=== PATIENT | female | born 1950 | race Caucasian/White ===

== ENCOUNTER 2018-03-12 11:46 | Inpatient (IN) | payer MEDICARE, BC ==
[2018-03-12] MEDS ORDERED: cefTRIAXone 2 GM in Sodium Chloride 0.9% 50 ML IV SCH (13:30)
[2018-03-12] MEDS ORDERED: Lactated Ringers 1,000 ML IV SCH (13:30)
[2018-03-12] MEDS ORDERED: Albuterol/Ipratropium 3.0-0.5 MG/3 ML Neb Soln NEB ONE (13:39)
--- NOTE | 2018-03-12 13:39 | EDM.PDOC ---
ED HPI GENERAL MEDICAL PROBLEM - General Chief Complaint: Possible Sepsis Stated Complaint: PNEUMONIA Time Seen by Provider: 03/12/18 13:21 Source of Information: Reports: Patient, Family, RN Notes Reviewed History Limitations: Reports: No Limitations - History of Present Illness INITIAL COMMENTS - FREE TEXT/NARRATIVE: 67-year-old female presents to the emergency department today complaint of shortness of breath and cough, she has a known history of multiple myeloma and hypothyroidism is currently on chemotherapy recently had pneumonia one month ago treated with amoxicillin. For this particular event she states about 3 days ago started developing a cough feeling more short of breath as well as fever no chest pain did have nausea and vomiting one time Denies Pain Score (Numeric/FACES): 0 - Related Data Allergies Allergy/AdvReac Type Severity Reaction Status Date / Time metronidazole [From Flagyl] Allergy Cannot Verified 03/12/18 12:32 Remember Metronidazole HCl Allergy Cannot Verified 03/12/18 12:32 [From Flagyl] Remember Home Meds: Home Meds Acyclovir [Zovirax] 400 mg PO BID 03/12/18 [History] Albuterol [Ventolin HFA] 2 puff INH Q4H PRN 03/12/18 [History] Aspirin [Ecotrin] 325 mg PO Q6H PRN 03/12/18 [History] Biotin Powder PO DAILY 03/12/18 [History] Calcium Carbonate [Calcium] 500 mg PO DAILY 03/12/18 [History] Cholecalciferol (Vitamin D3) [Vitamin D3] 1,000 units PO DAILY 03/12/18 [History ] Gabapentin [Neurontin] 300 mg PO DAILY 03/12/18 [History] Lenalidomide [Revlimid] 15 mg PO DAILY 03/12/18 [History] Levothyroxine [Synthroid] 100 mcg PO DAILY 03/12/18 [History] Prochlorperazine [Compazine] 10 mg PO Q6H PRN 03/12/18 [History] Past Medical History HEENT History: Reports: Cataract Respiratory History: Reports: Other (See Below) Other Respiratory History: pneumonia 1 month ago Gastrointestinal History: Reports: Diverticulosis 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: Musculoskeletal History: Reports: Other (See Below) 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 Neurological History: 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, Peripheral, Other (See Below) 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 Endocrine/Metabolic History: Reports: Hypothyroidism Oncologic (Cancer) History: Reports: Other (See Below) Other Oncologic History: multiple myeloma - Past Surgical History HEENT Surgical History: Reports: Tonsillectomy GI Surgical History: Reports: Cholecystectomy, Colonoscopy, Other (See Below) Other GI Surgeries/Procedures: partial colon resection Female Surgical History: Reports: Section, Tubal Ligation Endocrine Surgical History: Reports: Thyroidectomy Social & Family History - Tobacco Use Smoking Status *Q: Never Smoker ED ROS GENERAL - Review of Systems Review Of Systems: See Below Constitutional: Reports: Fever, Chills, Weakness HEENT: Reports: No Symptoms Respiratory: Reports: Shortness of Breath, Cough, Sputum. Denies: Wheezing Cardiovascular: Reports: Dyspnea on Exertion. Denies: Chest Pain GI/Abdominal: Reports: Nausea, Vomiting : Reports: No Symptoms Musculoskeletal: Reports: No Symptoms Skin: Reports: No Symptoms Neurological: Reports: No Symptoms ED EXAM, GENERAL - Physical Exam Exam: See Below Free Text/Narrative:: General: Female, ill-appearing, alert and oriented x3 HEENT: head is atraumatic normocephalic, eyes pupils equal round reactive to light, sclera clear no conjunctivitis appreciated. Ears tympanic membranes clear and bowden landmarks and light reflex are present bilaterally canals are clear. Nose no septal deviation, nares are clear, no blood present. Mouth mucosa is moist and pink no erythema or exudate noted in soft palate, tongue is midline uvula is midline , dentition is intact. Neck: Supple no thyromegaly no tracheal deviation. Nodes: Cervical nodes subclavicular nodes nontender no palpable lymphadenopathy noted. Lungs: Scattered rhonchi throughout all lung [place]. CV: Regular rate and rhythm S1 and S2 appreciated no murmurs rubs or gallops noted. Abdomen: Soft, nontender, no palpable masses or organomegaly appreciated, no distention no guarding bowel sounds are present, . Neuro: Cranial nerves II through XII grossly intact Skin: Warm and dry, intact Extremities: No lower extremity edema appreciated, pedal pulse is +2. Course - Vital Signs Last Recorded V/S: Last Vital Signs Temp 96.4 F 03/13/18 03:22 Pulse 70 03/13/18 03:22 Resp 18 03/13/18 03:22 BP 110/48 L 03/13/18 03:22 Pulse Ox 93 L 03/13/18 03:22 - Orders/Labs/Meds Orders: Active Orders 24 hr Category Date Time Status RT Aerosol Therapy [RC] ASDIRECTED Care 03/12/18 13:40 Inactive Chest 2V [CR] Urgent Exams 03/12/18 13:39 Taken CULTURE BLOOD [BC] Urgent Lab 03/12/18 12:40 Received CULTURE BLOOD [BC] Urgent Lab 03/12/18 13:54 Received CULTURE URINE [RM] Urgent Lab 03/12/18 14:00 Received Blood Culture x2 Reflex Set [OM.PC] Urgent Oth 03/12/18 13:30 Ordered Medication Orders Acetaminophen (Tylenol) 650 mg PO Q4H PRN PRN Reason: Pain (Mild 1-3)/fever Last Admin: 03/12/18 22:36 Dose: 650 mg Acyclovir (Zovirax) 400 mg PO BID [facility] Last Admin: 03/12/18 21:06 Dose: 400 mg Albuterol (Proventil Neb Soln) 2.5 mg NEB Q4H PRN PRN Reason: Shortness Of Breath/wheezing Benzonatate (Tessalon Perles) 100 mg PO TID PRN PRN Reason: Cough Gabapentin (Neurontin) 300 mg PO DAILY [facility] Guaifenesin/Codeine Phosphate (Robitussin Ac) 10 ml PO Q4H PRN PRN Reason: Cough Last Admin: 03/12/18 17:16 Dose: 10 ml Cefepime HCl 1 gm/ Sodium (Chloride) 50 mls @ 100 mls/hr IV Q8H [facility] Last Admin: 03/13/18 03:18 Dose: 100 mls/hr Admin: 03/12/18 19:59 Dose: 100 mls/hr Potassium Chloride/Sodium Chloride (Normal Saline With 20 Meq Kcl) 1,000 mls @ 125 mls/hr IV ASDIRECTED [facility] Last Admin: 03/13/18 02:52 Dose: 125 mls/hr Infusion: 03/13/18 02:52 Dose: 125 mls/hr Admin: 03/12/18 21:11 Dose: 125 mls/hr Ibuprofen (Motrin) 600 mg PO Q6H PRN PRN Reason: Pain/Fever Levofloxacin (Levaquin) 250 mg PO Q48H [facility] Levofloxacin (Levaquin) 500 mg PO Q48H [facility] Levothyroxine Sodium (Synthroid) 100 mcg PO DAILY@0730 [facility] Ondansetron HCl (Zofran Odt) 4 mg PO Q6H PRN PRN Reason: Nausea able to take PO Ondansetron HCl (Zofran) 4 mg IV Q6H PRN PRN Reason: Nausea/Vomiting Labs: Laboratory Tests 03/12/18 03/12/18 03/12/18 Range/Units 12:40 12:40 12:40 WBC 2.0 L (4.5-11.0) K/uL RBC 4.05 (3.30-5.50) M/uL Hgb 12.5 (12.0-15.0) g/dL Hct 36.4 (36.0-48.0) % MCV 90 (80-98) fL MCH 31 (27-31) pg MCHC 34 (32-36) % Plt Count 86 L (150-400) K/uL Neut % (Auto) 63 (36-66) % Lymph % (Auto) 14 L (24-44) % [place] % (Auto) 16 H (2-6) % Eos % (Auto) 6 H (2-4) % Baso % (Auto) 1 (0-1) % Sodium 140 (140-148) mmol/L Potassium 2.6 L* (3.6-5.2) mmol/L Chloride 101 (100-108) mmol/L Carbon Dioxide 24 (21-32) mmol/L Anion Gap 17.6 H (5.0-14.0) mmol/L BUN 10 (7-18) mg/dL Creatinine 1.2 H (0.6-1.0) mg/dL Est Cr Clr Drug Dosing 39.82 mL/min Estimated GFR (MDRD) 45 L (>60) Glucose 101 (74-106) mg/dL Lactic Acid 1.8 (0.4-2.0) mmol/L Calcium 7.0 L (8.5-10.1) mg/dL Magnesium (1.8-2.4) mg/dL Total Bilirubin 0.9 (0.2-1.0) mg/dL AST 27 (15-37) U/L ALT 43 (12-78) U/L Alkaline Phosphatase 73 (46-116) U/L C-Reactive Protein 8.46 H (0.0-0.3) mg/dL Total Protein 6.2 L (6.4-8.2) g/dL Albumin 2.9 L (3.4-5.0) g/dL Globulin 3.3 (2.3-3.5) g/dL Albumin/Globulin Ratio 0.9 L (1.2-2.2) Urine Color Urine Appearance Urine pH (4.5-8.0) Ur Specific [place] (1.008-1.030) Urine Protein (NEGATIVE) mg/dL Urine Glucose (UA) (NEGATIVE) mg/dL Urine Ketones (NEGATIVE) mg/dL Urine Occult Blood (NEGATIVE) Urine Nitrite (NEGATIVE) Urine Bilirubin (NEGATIVE) Urine Urobilinogen (NORMAL) mg/dL Ur Leukocyte Esterase (NEGATIVE) Urine RBC (0-5) Urine WBC (0-5) Ur Epithelial Cells Amorphous Sediment Urine Bacteria Urine Mucus Urine Other 03/12/18 03/12/18 Range/Units 12:40 13:39 WBC (4.5-11.0) K/uL RBC (3.30-5.50) M/uL Hgb (12.0-15.0) g/dL Hct (36.0-48.0) % MCV (80-98) fL MCH (27-31) pg MCHC (32-36) % Plt Count (150-400) K/uL Neut % (Auto) (36-66) % Lymph % (Auto) (24-44) % [place] % (Auto) (2-6) % Eos % (Auto) (2-4) % Baso % (Auto) (0-1) % Sodium (140-148) mmol/L Potassium (3.6-5.2) mmol/L Chloride (100-108) mmol/L Carbon Dioxide (21-32) mmol/L Anion Gap (5.0-14.0) mmol/L BUN (7-18) mg/dL Creatinine (0.6-1.0) mg/dL Est Cr Clr Drug Dosing mL/min Estimated GFR (MDRD) (>60) Glucose (74-106) mg/dL Lactic Acid (0.4-2.0) mmol/L Calcium (8.5-10.1) mg/dL Magnesium 1.7 L (1.8-2.4) mg/dL Total Bilirubin (0.2-1.0) mg/dL AST (15-37) U/L ALT (12-78) U/L Alkaline Phosphatase (46-116) U/L C-Reactive Protein (0.0-0.3) mg/dL Total Protein (6.4-8.2) g/dL Albumin (3.4-5.0) g/dL Globulin (2.3-3.5) g/dL Albumin/Globulin Ratio (1.2-2.2) Urine Color Yellow Urine Appearance Turbid Urine pH 5.0 (4.5-8.0) Ur Specific [place] 1.020 (1.008-1.030) Urine Protein 30 H (NEGATIVE) mg/dL Urine Glucose (UA) Normal (NEGATIVE) mg/dL Urine Ketones 50 H (NEGATIVE) mg/dL Urine Occult Blood Moderate (NEGATIVE) Urine Nitrite Negative (NEGATIVE) Urine Bilirubin Small (NEGATIVE) Urine Urobilinogen 4 (NORMAL) mg/dL Ur Leukocyte Esterase Large (NEGATIVE) Urine RBC 5-10 H (0-5) Urine WBC Packed H (0-5) Ur Epithelial Cells Few Amorphous Sediment Few Urine Bacteria Many Urine Mucus Few Urine Other Meds: Medications Generic Name Dose Route Start Last Admin Trade Name Freq PRN Reason Stop Dose Admin Acetaminophen 650 mg 03/12/18 16:17 03/12/18 22:36 Tylenol PO 650 mg Q4H PRN Administration Pain (Mild 1-3)/fever Acyclovir 400 mg 03/12/18 21:00 03/12/18 21:06 Zovirax PO 400 mg BID [facility]TER Administration Albuterol 2.5 mg 03/12/18 16:17 Proventil Neb Soln NEB Q4H PRN Shortness Of Breath/wheezing Benzonatate 100 mg 03/12/18 16:17 Tessalon Perles PO TID PRN Cough Gabapentin 300 mg 03/13/18 09:00 Neurontin PO DAILY [facility] Guaifenesin/Codeine Phosphate 10 ml 03/12/18 16:17 03/12/18 17:16 Robitussin Ac PO 10 ml Q4H PRN Administration Cough Cefepime HCl 1 gm/ Sodium 50 mls @ 100 mls/hr 03/12/18 18:00 03/13/18 03:18 Chloride IV 100 mls/hr Q8H [facility] Administration Potassium Chloride/Sodium Chloride 1,000 mls @ 125 mls/hr 05/22/18 16:17 02:52 Normal Saline With 20 Meq Kcl IV 125 mls/hr ASDIRECTED [facility] Administration Ibuprofen 600 mg 03/12/18 16:17 Motrin PO Q6H PRN Pain/Fever Levofloxacin 250 mg 03/14/18 16:00 Levaquin PO Q48H [facility] Levofloxacin 500 mg 03/14/18 16:00 Levaquin PO Q48H [facility] Levothyroxine Sodium 100 mcg 03/13/18 07:30 Synthroid PO DAILY@0730 [facility] Ondansetron HCl 4 mg 03/12/18 16:17 Zofran Odt PO Q6H PRN Nausea able to take PO Ondansetron HCl 4 mg 03/12/18 16:17 Zofran IV Q6H PRN Nausea/Vomiting Discontinued Medications Generic Name Dose Route Start Last Admin Trade Name Freq PRN Reason Stop Dose Admin Albuterol/Ipratropium 3 ml 03/12/18 13:39 03/12/18 14:00 Duoneb 3.0-0.5 Mg/3 Ml NEB 03/12/18 13:40 3 ml ONETIME ONE Administration Lactated Ringer's 1,000 mls @ 500 mls/hr 03/12/18 13:30 03/12/18 13:48 Ringers, Lactated IV 500 mls/hr ASDIRECTED [facility] Administration Ceftriaxone Sodium 2 gm/ 50 mls @ 100 mls/hr 03/12/18 14:00 03/12/18 13:47 Sodium Chloride IV 03/12/18 14:29 100 mls/hr ONETIME ONE Administration Potassium Chloride 20 meq/ 112 mls @ 56 mls/hr 03/12/18 14:30 03/12/18 14:33 Lidocaine HCl 2 ml/ Sodium IV 03/12/18 16:29 56 mls/hr Chloride ONETIME ONE Administration Levofloxacin/Dextrose 750 mg/ 150 mls @ 100 mls/hr 03/12/18 17:00 03/12/18 17 :43 Premix IV 03/12/18 18:29 100 mls/hr ONETIME ONE Administration Magnesium Sulfate 2 gm/ Premix 50 mls @ 25 mls/hr 03/12/18 18:00 03/12/18 21: 06 IV 03/12/18 19:59 25 mls/hr ONETIME ONE Administration Potassium Chloride 40 meq 03/12/18 14:00 03/12/18 14:07 Klor-Con M20 PO 03/12/18 14:01 40 meq ONETIME ONE Administration Departure - Departure Time of Disposition: 07:02 Disposition: Admitted As Inpatient 67 Condition: Fair Clinical Impression: Acute cystitis Qualifiers: Hematuria presence: without hematuria Qualified Code(s): N30.00 - Acute cystitis without hematuria - Discharge Information - My Orders Last 24 Hours: My Active Orders 03/12/18 12:40 CULTURE BLOOD [BC] Urgent 03/12/18 13:30 Blood Culture x2 Reflex Set [OM.PC] Urgent 03/12/18 13:39 Chest 2V [CR] Urgent 03/12/18 13:40 RT Aerosol Therapy [RC] ASDIRECTED 03/12/18 13:54 CULTURE BLOOD [BC] Urgent 03/12/18 14:00 CULTURE URINE [RM] Urgent - Assessment/Plan Last 24 Hours: My Active Orders 03/12/18 12:40 CULTURE BLOOD [BC] Urgent 03/12/18 13:30 Blood Culture x2 Reflex Set [OM.PC] Urgent 03/12/18 13:39 Chest 2V [CR] Urgent 03/12/18 13:40 RT Aerosol Therapy [RC] ASDIRECTED 03/12/18 13:54 CULTURE BLOOD [BC] Urgent 03/12/18 14:00 CULTURE URINE [RM] Urgent Plan: Assessment Acuity = acute Site and laterality = urinary tract infection comp care the patient with known history of multiple myeloma and hypothyroidism while immunocompromised on chemotherapy Etiology = suspicious for bacterial cause Manifestations = fever Location of injury = Home Lab values = WBC low at 2.0 consistent leukopenia potassium low at 2.6 consistent hypokalemia creatinine elevated 1.2 consistent with acute renal failure stage GIII a CRP elevated 8.46 and lactic acid normal at 1.8 urinalysis reveals 30 protein consistent proteinuria, 58 ketones consistent ketonuria 5-10 rbc's consistent hematuria and packed WBCs consistent pyuria chest x-ray I did review films myself I cannot appreciate any acute process, the official read from radiology is pending Plan Called discussed case with hospitalist loss control engineer he agreed, and evaluate the patient emergency department for admission This note was dictated using [employer] voice recognition software please call with any questions on syntax or grammar.
[2018-03-12] MEDS ORDERED: Potassium Chloride 20 MEQ in Premix Bag 1 BAG IV ONE (14:00)
[2018-03-12] MEDS ORDERED: cefTRIAXone 2 GM in Sodium Chloride 0.9% 50 ML IV ONE (14:00)
[2018-03-12] MEDS ORDERED: Potassium Chloride 20 MEQ Tab.ER PO ONE (14:00)
[2018-03-12] MEDS ORDERED: Potassium Chloride 20 MEQ, Lidocaine 1% 2 ML in Sodium Chloride 0.9% 100 ML IV ONE (14:30)
[2018-03-12] MEDS ORDERED: Levofloxacin/Dextrose 5%-Water 750 MG in Premix Bag 1 BAG IV ONE ×2 (15:41→17:00)
--- NOTE | 2018-03-12 15:55 | PCM.HP ---
H&P History of Present Illness - General Date of Service: 03/12/18 Admit Problem/Dx: Admission Diagnosis/Problem Admission Diagnosis/Problem Right lower lobe pneumonia Source of Information: Patient, Family, Provider History Limitations: Reports: No Limitations - History of Present Illness Initial Comments - Free Text/Narative: Keli presents to the emergency room today with 5 days of cough, shortness of breath and anorexia. She has had subjective fevers and chills at home over that time. Symptoms have progressed to the point that she is now short of breath doing very little. Initially her cough had clear sputum but it is now changed to white color. She's had very little to eat or drink over the last 5 days. She has mild diarrhea which she attributes to her chemotherapy. She has had occasional nausea and one episode of vomiting. She does not report abdominal pain. She hasn't noticed a change in urination. Yesterday she completed 21 days of oral Revlimid. Last IV chemotherapy was one week ago today. No sick contacts or recent travel. Workup in the emergency room revealed significant hypokalemia with potassium 2.6 as well as a low white blood cell count with less than 1000 neutrophils. Chest x-ray suggested pneumonia and urinalysis suggested acute cystitis. She will be admitted for IV antibiotics as well as potassium replacement. Denies Pain Score (Numeric/FACES): 0 - Related Data Allergies/Adverse Reactions: Allergies Allergy/AdvReac Type Severity Reaction Status Date / Time metronidazole [From Flagyl] Allergy Cannot Verified 03/12/18 12:32 Remember Metronidazole HCl Allergy Cannot Verified 03/12/18 12:32 [From Flagyl] Remember Home Medications: Home Meds Acyclovir [Zovirax] 400 mg PO BID 03/12/18 [History] Albuterol [Ventolin HFA] 2 puff INH Q4H PRN 03/12/18 [History] Aspirin [Ecotrin] 325 mg PO Q6H PRN 03/12/18 [History] Biotin Powder PO DAILY 03/12/18 [History] Calcium Carbonate [Calcium] 500 mg PO DAILY 03/12/18 [History] Cholecalciferol (Vitamin D3) [Vitamin D3] 1,000 units PO DAILY 03/12/18 [History ] Gabapentin [Neurontin] 300 mg PO DAILY 03/12/18 [History] Lenalidomide [Revlimid] 15 mg PO DAILY 03/12/18 [History] Levothyroxine [Synthroid] 100 mcg PO DAILY 03/12/18 [History] Prochlorperazine [Compazine] 10 mg PO Q6H PRN 03/12/18 [History] Past Medical History HEENT History: Reports: Cataract Respiratory History: Reports: Other (See Below) Other Respiratory History: pneumonia 1 month ago Gastrointestinal History: Reports: Diverticulosis [employer]IST History: Reports: Musculoskeletal History: Reports: Other (See Below) 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 Neurological History: 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, Peripheral, Other (See Below) 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 Endocrine/Metabolic History: Reports: Hypothyroidism Oncologic (Cancer) History: Reports: Other (See Below) Other Oncologic History: multiple myeloma - Past Surgical History HEENT Surgical History: Reports: Tonsillectomy GI Surgical History: Reports: Cholecystectomy, Colonoscopy, Other (See Below) Other GI Surgeries/Procedures: partial colon resection Female Surgical History: Reports: Section, Tubal Ligation Endocrine Surgical History: Reports: Thyroidectomy Social & Family History - Family History Cardiac: Denies: CAD - Tobacco Use Smoking Status *Q: Never Smoker Years of Tobacco use: 9 Used Tobacco, but Quit: Yes Month/Year Tobacco Last Used: 0 - Caffeine Use Caffeine Use: Reports: Soda - Alcohol Use Alcohol Use History: No - Recreational Drug Use Recreational Drug Use: No H&P Review of Systems - Review of Systems: Review Of Systems: See Below Free Text/Narrative: A complete 12 point review of systems was obtained. Pertinent positives and negatives are noted in the history of present illness. All other systems were reviewed and were negative except as noted. Exam - Exam Exam: See Below - Vital Signs Vital Signs: Last Vital Signs Temp 37.4 C 03/12/18 15:13 Pulse 92 03/12/18 15:13 Resp 16 03/12/18 15:13 BP 126/46 L 03/12/18 15:13 Pulse Ox 94 L 03/12/18 15:13 Weight: 81.647 kg - Exam Quality Assessment: No: Supplemental Oxygen General: Alert, Oriented, Cooperative, Mild Distress HEENT: Conjunctiva Clear. No: Mucosa Moist & [place] (dry), Scleral Icterus Neck: Supple, Trachea Midline. No: Lymphadenopathy Lungs: Normal Respiratory Effort, Crackles (right mid lung posteriorly ). No: Wheezing Cardiovascular: Regular Rate, Regular Rhythm. No: Systolic Murmur GI/Abdominal Exam: Normal Bowel Sounds, Soft, Non-Tender, No Distention Back Exam: Normal Inspection, Full Range of Motion Extremities: No Pedal Edema. No: Increased Warmth Peripheral Pulses: 2+: Dorsalis Pedis (L), Dorsalis Pedis (R) Skin: Warm, Dry Neuro Extensive - Mental Status: Alert, Oriented x3, Nl Response to Commands Neuro Extensive - Motor, Sensory, Reflexes: CN II-XII Intact. No: Dysarthria, Abnormal Motor, Other Psychiatric: Alert, Normal Affect - Patient Data Lab Results Last 24 hrs: Laboratory Results - last 24 hr 03/12/18 03/12/18 03/12/18 Range/Units 12:40 12:40 12:40 WBC 2.0 L (4.5-11.0) K/uL RBC 4.05 (3.30-5.50) M/uL Hgb 12.5 (12.0-15.0) g/dL Hct 36.4 (36.0-48.0) % MCV 90 (80-98) fL MCH 31 (27-31) pg MCHC 34 (32-36) % Plt Count 86 L (150-400) K/uL Neut % (Auto) 63 (36-66) % Lymph % (Auto) 14 L (24-44) % [place] % (Auto) 16 H (2-6) % Eos % (Auto) 6 H (2-4) % Baso % (Auto) 1 (0-1) % Sodium 140 (140-148) mmol/L Potassium 2.6 L* (3.6-5.2) mmol/L Chloride 101 (100-108) mmol/L Carbon Dioxide 24 (21-32) mmol/L Anion Gap 17.6 H (5.0-14.0) mmol/L BUN 10 (7-18) mg/dL Creatinine 1.2 H (0.6-1.0) mg/dL Est Cr Clr Drug Dosing 39.82 mL/min Estimated GFR (MDRD) 45 L (>60) Glucose 101 (74-106) mg/dL Lactic Acid 1.8 (0.4-2.0) mmol/L Calcium 7.0 L (8.5-10.1) mg/dL Total Bilirubin 0.9 (0.2-1.0) mg/dL AST 27 (15-37) U/L ALT 43 (12-78) U/L Alkaline Phosphatase 73 (46-116) U/L C-Reactive Protein 8.46 H (0.0-0.3) mg/dL Total Protein 6.2 L (6.4-8.2) g/dL Albumin 2.9 L (3.4-5.0) g/dL Globulin 3.3 (2.3-3.5) g/dL Albumin/Globulin Ratio 0.9 L (1.2-2.2) Urine Color Urine Appearance Urine pH (4.5-8.0) Ur Specific [place] (1.008-1.030) Urine Protein (NEGATIVE) mg/dL Urine Glucose (UA) (NEGATIVE) mg/dL Urine Ketones (NEGATIVE) mg/dL Urine Occult Blood (NEGATIVE) Urine Nitrite (NEGATIVE) Urine Bilirubin (NEGATIVE) Urine Urobilinogen (NORMAL) mg/dL Ur Leukocyte Esterase (NEGATIVE) Urine RBC (0-5) Urine WBC (0-5) Ur Epithelial Cells Amorphous Sediment Urine Bacteria Urine Mucus Urine Other 03/12/18 Range/Units 13:39 WBC (4.5-11.0) K/uL RBC (3.30-5.50) M/uL Hgb (12.0-15.0) g/dL Hct (36.0-48.0) % MCV (80-98) fL MCH (27-31) pg MCHC (32-36) % Plt Count (150-400) K/uL Neut % (Auto) (36-66) % Lymph % (Auto) (24-44) % [place] % (Auto) (2-6) % Eos % (Auto) (2-4) % Baso % (Auto) (0-1) % Sodium (140-148) mmol/L Potassium (3.6-5.2) mmol/L Chloride (100-108) mmol/L Carbon Dioxide (21-32) mmol/L Anion Gap (5.0-14.0) mmol/L BUN (7-18) mg/dL Creatinine (0.6-1.0) mg/dL Est Cr Clr Drug Dosing mL/min Estimated GFR (MDRD) (>60) Glucose (74-106) mg/dL Lactic Acid (0.4-2.0) mmol/L Calcium (8.5-10.1) mg/dL Total Bilirubin (0.2-1.0) mg/dL AST (15-37) U/L ALT (12-78) U/L Alkaline Phosphatase (46-116) U/L C-Reactive Protein (0.0-0.3) mg/dL Total Protein (6.4-8.2) g/dL Albumin (3.4-5.0) g/dL Globulin (2.3-3.5) g/dL Albumin/Globulin Ratio (1.2-2.2) Urine Color Yellow Urine Appearance Turbid Urine pH 5.0 (4.5-8.0) Ur Specific [place] 1.020 (1.008-1.030) Urine Protein 30 H (NEGATIVE) mg/dL Urine Glucose (UA) Normal (NEGATIVE) mg/dL Urine Ketones 50 H (NEGATIVE) mg/dL Urine Occult Blood Moderate (NEGATIVE) Urine Nitrite Negative (NEGATIVE) Urine Bilirubin Small (NEGATIVE) Urine Urobilinogen 4 (NORMAL) mg/dL Ur Leukocyte Esterase Large (NEGATIVE) Urine RBC 5-10 H (0-5) Urine WBC Packed H (0-5) Ur Epithelial Cells Few Amorphous Sediment Few Urine Bacteria Many Urine Mucus Few Urine Other Result Diagrams: 03/12/18 12:40 03/12/18 12:40 Imaging Impressions Last 24 hrs: Chest x-ray - images personally reviewed - there is a right lower lobe infiltrate noted on both frontal and lateral views. No evidence for mass or effusion. Heart size is normal. *Q Meaningful Use (ADM) - VTE Risk Assess *Q Each Risk Factor Represents 1 Point: Obesity ( BMI > 25 kg/m2) Total Score 1 Point Risk Factors: 1 Each Risk Factor Represents 2 Points: Age 60 - 74 Years, Malignancy (present or previous) Total Score 2 Point Risk Factors: 4 Each Risk Factor Represents 3 Points: None Total Score 3 Point Risk Factors: 0 Each Risk Factor Represents 5 Points: None Total Score 5 Point Risk Factors: 0 Venous Thromboembolism Risk Factor Score *Q: 5 - Problem List (1) Right lower lobe pneumonia SNOMED Code(s): 817341410 ICD Code: J18.1 - LOBAR PNEUMONIA, UNSPECIFIED ORGANISM Status: Acute Current Visit: Yes Qualifiers: Pneumonia type: due to unspecified organism Qualified Code(s): J18.1 - Lobar pneumonia, unspecified organism (2) Acute cystitis SNOMED Code(s): 40188262 ICD Code: N30.00 - ACUTE CYSTITIS WITHOUT HEMATURIA Status: Acute Current Visit: Yes Qualifiers: Hematuria presence: without hematuria Qualified Code(s): N30.00 - Acute cystitis without hematuria (3) Hypokalemia SNOMED Code(s): 89553007 ICD Code: E87.6 - HYPOKALEMIA Status: Acute Current Visit: Yes (4) Multiple myeloma SNOMED Code(s): 205354113 ICD Code: C90.00 - MULTIPLE MYELOMA NOT HAVING ACHIEVED REMISSION Status: Chronic Current Visit: Yes Qualifiers: Multiple myeloma remission status: not in remission Qualified Code(s): C90.00 - Multiple myeloma not having achieved remission Problem List Initiated/Reviewed/Updated: Yes Orders Last 24hrs: Active Orders 24 hr Category Date Time Status Patient Status Manage Transfer [TRANSFER] Routine ADT 03/12/18 15:42 Ordered RT Aerosol Therapy [RC] ASDIRECTED Care 03/12/18 13:40 Active Vital Signs [RC] Q1H Care 03/12/18 13:30 Active Chest 2V [CR] Urgent Exams 03/12/18 13:39 Taken CULTURE BLOOD [BC] Urgent Lab 03/12/18 12:40 Received CULTURE BLOOD [BC] Urgent Lab 03/12/18 13:54 Received CULTURE URINE [RM] Urgent Lab 03/12/18 14:00 Received UA W/MICROSCOPIC [URIN] Urgent Lab 03/12/18 13:39 Ordered Lactated Ringers [Ringers, Lactated] 1,000 ml Med 03/12/18 13:30 Active IV ASDIRECTED Levofloxacin/Dextrose 5%-Water [Levaquin in D5W 750 MG/ Med 03/12/18 15:41 Active 150 ML] 750 mg Premix Bag 1 bag IV ONETIME Potassium Chloride 20 meq Med 03/12/18 14:30 Active Lidocaine 1% [Xylocaine 1%] 2 ml Sodium Chloride 0.9% [Normal Saline] 100 ml IV ONETIME Blood Culture x2 Reflex Set [OM.PC] Urgent Oth 03/12/18 13:30 Ordered Resuscitation Status Routine Resus Stat 03/12/18 15:44 Ordered Medication Orders Lactated Ringer's (Ringers, Lactated) 1,000 mls @ 500 mls/hr IV ASDIRECTED CARTER Last Admin: 03/12/18 13:48 Dose: 500 mls/hr Potassium Chloride 20 meq/Lidocaine HCl 2 ml/ Sodium Chloride 112 mls @ 56 mls/ hr IV ONETIME ONE Stop: 03/12/18 16:29 Last Admin: 03/12/18 14:33 Dose: 56 mls/hr Levofloxacin/Dextrose 750 mg/ (Premix) 150 mls @ 100 mls/hr IV ONETIME ONE Stop: 03/12/18 17:10 Assessment/Plan Comment:: ASSESSMENT AND PLAN - Right lower lobe pneumonia - current symptoms include cough and progressive shortness of breath. She is not currently hypoxic. Examination and chest x-ray consistent with right lower lobe pneumonia. -Levofloxacin and cefepime -Supplement oxygen if needed -Sputum culture if able -Cough suppressants as needed Acute cystitis without hematuria - no symptoms but urinalysis strongly suggestive of infection. -IV fluids -Antibiotics as above -Follow-up urine culture Hypokalemia - Potassium level of 2.6 at the time of presentation. She has received 60 mEq of potassium in the emergency room. -IV fluids with potassium -Repeat level this evening and replace as indicated Multiple myeloma - Currently receiving dual chemotherapy with Revlimid for 21 out of 28 days which was just completed as well as biweekly IV chemotherapy. -Outpatient follow-up Maintenance issues - - DVT prophylaxis - mechanical with early ambulation - GI prophylaxis - not indicated - Nutrition - regular diet as tolerated - Sim catheter - not indicated CODE STATUS - full code Admission justification - This patient will be admitted for inpatient services and is medically appropriate meeting medical necessity for inpatient admission as outlined in my documentation. I reasonably expect the patient will require inpatient services that span a period time over 2 midnights. I reasonably expect this patient to be discharged or transferred within 96 hours after admission to the [facility]. Disposition - anticipate discharge to home after the hospital stay Primary care physician - Dr. César Hutchison M.D.
[2018-03-12] MEDS ORDERED: Ibuprofen 600 MG Tab PO PRN (16:17)
[2018-03-12] MEDS ORDERED: Ondansetron 4 MG Tab.DIS PO PRN (16:17)
[2018-03-12] MEDS ORDERED: Ondansetron 4 MG/2 ML SDV IV PRN (16:17)
[2018-03-12] MEDS ORDERED: Benzonatate 100 MG Cap PO PRN (16:17)
[2018-03-12] MEDS ORDERED: Albuterol 0.083% 2.5 MG/3 ML Neb Soln NEB PRN (16:17)
[2018-03-12] MEDS ORDERED: Acetaminophen 325 MG Tab PO PRN (16:17)
[2018-03-12] MEDS: Codeine/guaiFENesin 100mg-10 MG/5 ML Syrup 10 ML Cup PO PRN (17:16)
[2018-03-12] MEDS ORDERED: Magnesium Sulfate/Water 2 GM in Premix Bag 1 BAG IV ONE (18:00)
[2018-03-12] MEDS: Cefepime 1 GM in Sodium Chloride 0.9% 50 ML IV SCH (19:59)
[2018-03-12] MEDS: Acyclovir 200 MG Cap PO SCH (21:06)
[2018-03-12] MEDS: NS + KCl 20mEq/L 1,000 ML IV SCH (21:11)
[2018-03-13] MEDS: NS + KCl 20mEq/L 1,000 ML IV SCH (02:52)
[2018-03-13] MEDS: Cefepime 1 GM in Sodium Chloride 0.9% 50 ML IV SCH ×3 (03:18→18:03)
[2018-03-13] MEDS: Levothyroxine 100 MCG Tab PO SCH (07:55)
[2018-03-13] MEDS: Acyclovir 200 MG Cap PO SCH ×2 (08:29→20:48)
[2018-03-13] MEDS: Gabapentin 300 MG Cap PO SCH (08:29)
--- NOTE | 2018-03-13 09:27 | CR ---
Chest 2V INDICATION: Cough, fever FINDINGS: Focal consolidation in the right lower lobe consistent with pneumonia. Left lung clear. Hyp ertrophic changes thoracic spine. Recommend follow-up chest x-ray in 4-6 weeks to ensure resolution.
--- NOTE | 2018-03-13 09:59 | PCM.PN ---
- General Info Date of Service: 03/13/18 Functional Status: Reports: Pain Controlled, Tolerating Diet - Review of Systems General: Reports: Fever, Weakness Pulmonary: Reports: Shortness of Breath, Pleuritic Chest Pain, Cough Systems Review Comment:: There were no acute events overnight. Patient has a persistent cough but it seems a little better today. She did have a fever yesterday evening but temperature is better today. She has some mild right-sided pleuritic chest pain with coughing and deep breaths. Blood pressures are on the low side of normal. In general she's feeling quite a bit better. Appetite is returning. - Patient Data Vitals - Most Recent: Last Vital Signs Temp 36.4 C 03/13/18 07:15 Pulse 74 03/13/18 07:15 Resp 17 03/13/18 07:15 BP 108/45 L 03/13/18 07:15 Pulse Ox 96 03/13/18 07:15 Weight - Most Recent: 78.471 kg I&O - Last 24 Hours: Intake & Output 03/12/18 03/13/18 03/13/18 22:59 06:59 14:59 Intake Total 205 1557 Output Total 200 500 Balance 205 1357 -500 Lab Results Last 24 Hours: Laboratory Results - last 24 hr 03/12/18 03/12/18 03/12/18 Range/Units 12:40 12:40 12:40 WBC 2.0 L (4.5-11.0) K/uL RBC 4.05 (3.30-5.50) M/uL Hgb 12.5 (12.0-15.0) g/dL Hct 36.4 (36.0-48.0) % MCV 90 (80-98) fL MCH 31 (27-31) pg MCHC 34 (32-36) % Plt Count 86 L (150-400) K/uL Neut % (Auto) 63 (36-66) % Lymph % (Auto) 14 L (24-44) % [place] % (Auto) 16 H (2-6) % Eos % (Auto) 6 H (2-4) % Baso % (Auto) 1 (0-1) % Sodium 140 (140-148) mmol/L Potassium 2.6 L* (3.6-5.2) mmol/L Chloride 101 (100-108) mmol/L Carbon Dioxide 24 (21-32) mmol/L Anion Gap 17.6 H (5.0-14.0) mmol/L BUN 10 (7-18) mg/dL Creatinine 1.2 H (0.6-1.0) mg/dL Est Cr Clr Drug Dosing 39.82 mL/min Estimated GFR (MDRD) 45 L (>60) Glucose 101 (74-106) mg/dL Lactic Acid 1.8 (0.4-2.0) mmol/L Calcium 7.0 L (8.5-10.1) mg/dL Magnesium (1.8-2.4) mg/dL Total Bilirubin 0.9 (0.2-1.0) mg/dL AST 27 (15-37) U/L ALT 43 (12-78) U/L Alkaline Phosphatase 73 (46-116) U/L C-Reactive Protein 8.46 H (0.0-0.3) mg/dL Total Protein 6.2 L (6.4-8.2) g/dL Albumin 2.9 L (3.4-5.0) g/dL Globulin 3.3 (2.3-3.5) g/dL Albumin/Globulin Ratio 0.9 L (1.2-2.2) Urine Color Urine Appearance Urine pH (4.5-8.0) Ur Specific [place] (1.008-1.030) Urine Protein (NEGATIVE) mg/dL Urine Glucose (UA) (NEGATIVE) mg/dL Urine Ketones (NEGATIVE) mg/dL Urine Occult Blood (NEGATIVE) Urine Nitrite (NEGATIVE) Urine Bilirubin (NEGATIVE) Urine Urobilinogen (NORMAL) mg/dL Ur Leukocyte Esterase (NEGATIVE) Urine RBC (0-5) Urine WBC (0-5) Ur Epithelial Cells Amorphous Sediment Urine Bacteria Urine Mucus Urine Other 03/12/18 03/12/18 03/12/18 Range/Units 12:40 13:39 20:00 WBC (4.5-11.0) K/uL RBC (3.30-5.50) M/uL Hgb (12.0-15.0) g/dL Hct (36.0-48.0) % MCV (80-98) fL MCH (27-31) pg MCHC (32-36) % Plt Count (150-400) K/uL Neut % (Auto) (36-66) % Lymph % (Auto) (24-44) % [place] % (Auto) (2-6) % Eos % (Auto) (2-4) % Baso % (Auto) (0-1) % Sodium (140-148) mmol/L Potassium 3.0 L (3.6-5.2) mmol/L Chloride (100-108) mmol/L Carbon Dioxide (21-32) mmol/L Anion Gap (5.0-14.0) mmol/L BUN (7-18) mg/dL Creatinine (0.6-1.0) mg/dL Est Cr Clr Drug Dosing mL/min Estimated GFR (MDRD) (>60) Glucose (74-106) mg/dL Lactic Acid (0.4-2.0) mmol/L Calcium (8.5-10.1) mg/dL Magnesium 1.7 L (1.8-2.4) mg/dL Total Bilirubin (0.2-1.0) mg/dL AST (15-37) U/L ALT (12-78) U/L Alkaline Phosphatase (46-116) U/L C-Reactive Protein (0.0-0.3) mg/dL Total Protein (6.4-8.2) g/dL Albumin (3.4-5.0) g/dL Globulin (2.3-3.5) g/dL Albumin/Globulin Ratio (1.2-2.2) Urine Color Yellow Urine Appearance Turbid Urine pH 5.0 (4.5-8.0) Ur Specific [place] 1.020 (1.008-1.030) Urine Protein 30 H (NEGATIVE) mg/dL Urine Glucose (UA) Normal (NEGATIVE) mg/dL Urine Ketones 50 H (NEGATIVE) mg/dL Urine Occult Blood Moderate (NEGATIVE) Urine Nitrite Negative (NEGATIVE) Urine Bilirubin Small (NEGATIVE) Urine Urobilinogen 4 (NORMAL) mg/dL Ur Leukocyte Esterase Large (NEGATIVE) Urine RBC 5-10 H (0-5) Urine WBC Packed H (0-5) Ur Epithelial Cells Few Amorphous Sediment Few Urine Bacteria Many Urine Mucus Few Urine Other 03/13/18 03/13/18 Range/Units 06:05 06:05 WBC 1.6 L (4.5-11.0) K/uL RBC 3.45 (3.30-5.50) M/uL Hgb 10.4 L D (12.0-15.0) g/dL Hct 31.3 L (36.0-48.0) % MCV 91 (80-98) fL MCH 30 (27-31) pg MCHC 33 (32-36) % Plt Count 61 L (150-400) K/uL Neut % (Auto) 64 (36-66) % Lymph % (Auto) 11 L (24-44) % [place] % (Auto) 14 H (2-6) % Eos % (Auto) 10 H (2-4) % Baso % (Auto) 1 (0-1) % Sodium 143 (140-148) mmol/L Potassium 3.3 L (3.6-5.2) mmol/L Chloride 108 (100-108) mmol/L Carbon Dioxide 24 (21-32) mmol/L Anion Gap 14.3 H (5.0-14.0) mmol/L BUN 8 (7-18) mg/dL Creatinine 1.0 (0.6-1.0) mg/dL Est Cr Clr Drug Dosing 47.79 mL/min Estimated GFR (MDRD) 55 L (>60) Glucose 102 (74-106) mg/dL Lactic Acid (0.4-2.0) mmol/L Calcium 6.5 L* (8.5-10.1) mg/dL Magnesium (1.8-2.4) mg/dL Total Bilirubin (0.2-1.0) mg/dL AST (15-37) U/L ALT (12-78) U/L Alkaline Phosphatase (46-116) U/L C-Reactive Protein (0.0-0.3) mg/dL Total Protein (6.4-8.2) g/dL Albumin (3.4-5.0) g/dL Globulin (2.3-3.5) g/dL Albumin/Globulin Ratio (1.2-2.2) Urine Color Urine Appearance Urine pH (4.5-8.0) Ur Specific [place] (1.008-1.030) Urine Protein (NEGATIVE) mg/dL Urine Glucose (UA) (NEGATIVE) mg/dL Urine Ketones (NEGATIVE) mg/dL Urine Occult Blood (NEGATIVE) Urine Nitrite (NEGATIVE) Urine Bilirubin (NEGATIVE) Urine Urobilinogen (NORMAL) mg/dL Ur Leukocyte Esterase (NEGATIVE) Urine RBC (0-5) Urine WBC (0-5) Ur Epithelial Cells Amorphous Sediment Urine Bacteria Urine Mucus Urine Other Med Orders - Current: Current Medications Acetaminophen (Tylenol) 650 mg PO Q4H PRN PRN Reason: Pain (Mild 1-3)/fever Last Admin: 03/12/18 22:36 Dose: 650 mg Acyclovir (Zovirax) 400 mg PO BID [facility] Last Admin: 03/13/18 08:29 Dose: 400 mg Albuterol (Proventil Neb Soln) 2.5 mg NEB Q4H PRN PRN Reason: Shortness Of Breath/wheezing Benzonatate (Tessalon Perles) 100 mg PO TID PRN PRN Reason: Cough Gabapentin (Neurontin) 300 mg PO DAILY [facility] Last Admin: 03/13/18 08:29 Dose: 300 mg Guaifenesin/Codeine Phosphate (Robitussin Ac) 10 ml PO Q4H PRN PRN Reason: Cough Last Admin: 03/12/18 17:16 Dose: 10 ml Cefepime HCl 1 gm/ Sodium (Chloride) 50 mls @ 100 mls/hr IV Q8H [facility] Last Admin: 03/13/18 03:18 Dose: 100 mls/hr Ibuprofen (Motrin) 600 mg PO Q6H PRN PRN Reason: Pain/Fever Levofloxacin (Levaquin) 250 mg PO Q48H [facility] Levofloxacin (Levaquin) 500 mg PO Q48H [facility] Levothyroxine Sodium (Synthroid) 100 mcg PO DAILY@0730 [facility] Last Admin: 03/13/18 07:55 Dose: 100 mcg Ondansetron HCl (Zofran Odt) 4 mg PO Q6H PRN PRN Reason: Nausea able to take PO Ondansetron HCl (Zofran) 4 mg IV Q6H PRN PRN Reason: Nausea/Vomiting Potassium Chloride (Klor-Con M20) 40 meq PO ONETIME ONE Stop: 03/13/18 10:01 Discontinued Medications Albuterol/Ipratropium (Duoneb 3.0-0.5 Mg/3 Ml) 3 ml NEB ONETIME ONE Stop: 03/12/18 13:40 Last Admin: 03/12/18 14:00 Dose: 3 ml Lactated Ringer's (Ringers, Lactated) 1,000 mls @ 500 mls/hr IV ASDIRECTED [facility] Last Admin: 03/12/18 13:48 Dose: 500 mls/hr Ceftriaxone Sodium 2 gm/ (Sodium Chloride) 50 mls @ 100 mls/hr IV ONETIME ONE Stop: 03/12/18 14:29 Last Admin: 03/12/18 13:47 Dose: 100 mls/hr Potassium Chloride 20 meq/Lidocaine HCl 2 ml/ Sodium Chloride 112 mls @ 56 mls/ hr IV ONETIME ONE Stop: 03/12/18 16:29 Last Admin: 03/12/18 14:33 Dose: 56 mls/hr Potassium Chloride/Sodium Chloride (Normal Saline With 20 Meq Kcl) 1,000 mls @ 125 mls/hr IV ASDIRECTED [facility] Last Admin: 03/13/18 02:52 Dose: 125 mls/hr Levofloxacin/Dextrose 750 mg/ (Premix) 150 mls @ 100 mls/hr IV ONETIME ONE Stop: 03/12/18 18:29 Last Admin: 03/12/18 17:43 Dose: 100 mls/hr Magnesium Sulfate 2 gm/ Premix 50 mls @ 25 mls/hr IV ONETIME ONE Stop: 03/12/18 19:59 Last Admin: 03/12/18 21:06 Dose: 25 mls/hr Potassium Chloride (Klor-Con M20) 40 meq PO ONETIME ONE Stop: 03/12/18 14:01 Last Admin: 03/12/18 14:07 Dose: 40 meq - Exam Quality Assessment: No: Supplemental Oxygen General: Alert, Oriented, Cooperative, No Acute Distress Neck: Supple Lungs: Normal Respiratory Effort, Crackles (right mid lung posteriorly ) Cardiovascular: Regular Rate, Regular Rhythm GI/Abdominal Exam: Soft, No Distention Extremities: No Pedal Edema Psy/Mental Status: Alert, Normal Affect - Problem List & Annotations (1) Right lower lobe pneumonia SNOMED Code(s): 370671688 Code(s): J18.1 - LOBAR PNEUMONIA, UNSPECIFIED ORGANISM Status: Acute Current Visit: Yes Qualifiers: Pneumonia type: due to unspecified organism Qualified Code(s): J18.1 - Lobar pneumonia, unspecified organism (2) Acute cystitis SNOMED Code(s): 12692618 Code(s): N30.00 - ACUTE CYSTITIS WITHOUT HEMATURIA Status: Acute Current Visit: Yes Qualifiers: Hematuria presence: without hematuria Qualified Code(s): N30.00 - Acute cystitis without hematuria (3) Hypokalemia SNOMED Code(s): 97891607 Code(s): E87.6 - HYPOKALEMIA Status: Acute Current Visit: Yes (4) Multiple myeloma SNOMED Code(s): 263096332 Code(s): C90.00 - MULTIPLE MYELOMA NOT HAVING ACHIEVED REMISSION Status: Chronic Current Visit: Yes Qualifiers: Multiple myeloma remission status: not in remission Qualified Code(s): C90.00 - Multiple myeloma not having achieved remission - Problem List Review Problem List Initiated/Reviewed/Updated: Yes - My Orders Last 24 Hours: My Active Orders 03/12/18 15:44 Resuscitation Status Routine 03/12/18 16:17 Patient Status [ADT] Routine Intake and Output [RC] QSHIFT Notify Provider Vital Signs [RC] ASDIRECTED Oxygen Therapy [RC] PRN RT Aerosol Therapy [RC] ASDIRECTED Up With Assistance [RC] ASDIRECTED Vital Signs [RC] Q4H CULTURE RESPIRATORY + SMEAR [RM] Routine Acetaminophen [Tylenol] 650 mg PO Q4H PRN Albuterol [Proventil Neb Soln] 2.5 mg NEB Q4H PRN Benzonatate [Tessalon Perles] 100 mg PO TID PRN Codeine/guaiFENesin [Robitussin AC] 10 ml PO Q4H PRN Ibuprofen [Motrin] 600 mg PO Q6H PRN Ondansetron [Zofran ODT] 4 mg PO Q6H PRN Ondansetron [Zofran] 4 mg IV Q6H PRN Sequential Compression Device [OM.PC] Per Unit Routine 03/12/18 18:00 Cefepime [Maxipime] 1 gm Sodium Chloride 0.9% [Normal Saline] 50 ml IV Q8H 03/12/18 21:00 Acyclovir [Zovirax] 400 mg PO BID 03/12/18 Dinner Regular Diet [DIET] 03/13/18 07:30 Levothyroxine [Synthroid] 100 mcg PO DAILY@0730 03/13/18 09:00 Gabapentin [Neurontin] 300 mg PO DAILY 03/13/18 09:57 Convert IV to Saline Lock [OM.PC] Routine 03/13/18 09:58 Discontinue Telemetry Monitoring [Cardiac Monitoring Discontinue] [RC] Click to Edit 03/13/18 10:00 Potassium Chloride [Klor-Con M20] 40 meq PO ONETIME ONE 03/13/18 17:00 POTASSIUM,K [CHEM] Timed 03/14/18 05:00 BASIC METABOLIC PANEL,BMP [CHEM] Timed CBC WITH AUTO DIFF [HEME] Timed 03/14/18 16:00 Levofloxacin [Levaquin] 250 mg PO Q48H Levofloxacin [Levaquin] 500 mg PO Q48H - Plan Plan:: ASSESSMENT AND PLAN - Right lower lobe pneumonia - clinically improving, has not required supplemental oxygen so far. Cough is mainly symptomatic at this time. Shortness of breath is better today. -Levofloxacin and cefepime -Supplement oxygen if needed -Sputum culture if able -Cough suppressants as needed Acute cystitis without hematuria - no symptoms but urinalysis strongly suggestive of infection. -Saline lock IV -Antibiotics as above -Follow-up urine culture Hypokalemia - Potassium level improving with supplementation but remains low. -Supplement potassium this morning -Repeat level this evening and replace as indicated Multiple myeloma - Currently receiving dual chemotherapy with Revlimid for 21 out of 28 days which was just completed as well as biweekly IV chemotherapy. -Outpatient follow-up Maintenance issues - - DVT prophylaxis - mechanical with early ambulation - GI prophylaxis - not indicated - Nutrition - regular diet as tolerated Disposition - anticipate discharge to home after the hospital stay Gilmar Hutchison M.D.
[2018-03-13] MEDS ORDERED: Potassium Chloride 20 MEQ Tab.ER PO ONE ×2 (10:00→17:32)
[2018-03-14] MEDS: Cefepime 1 GM in Sodium Chloride 0.9% 50 ML IV SCH (02:26)
[2018-03-14] MEDS: Codeine/guaiFENesin 100mg-10 MG/5 ML Syrup 10 ML Cup PO PRN (03:23)
[2018-03-14] MEDS: Levothyroxine 100 MCG Tab PO SCH (06:32)
[2018-03-14] MEDS ORDERED: Levofloxacin 250 MG Tab PO SCH ×2 (09:00→16:00)
[2018-03-14] MEDS ORDERED: Levofloxacin 500 MG Tab PO SCH ×2 (09:00→16:00)
[2018-03-14] MEDS: Acyclovir 200 MG Cap PO SCH (09:25)
[2018-03-14] MEDS: Gabapentin 300 MG Cap PO SCH (09:26)
--- NOTE | 2018-03-14 10:43 | PCM.DCSUM1 ---
Discharge Summary - Hospital Course Brief History: 67-year-old female with history of multiple myeloma currently on chemotherapy who presented with cough, shortness of breath and lethargy. She was admitted for management of a right lower lobe pneumonia and possible urinary tract infection as well as acute kidney injury. - Discharge Data Discharge Date: 03/14/18 Discharge Disposition: Home, Self-Care 01 Condition: Good - Discharge Diagnosis/Problem(s) (1) Right lower lobe pneumonia SNOMED Code(s): 429625306 ICD Code: J18.1 - LOBAR PNEUMONIA, UNSPECIFIED ORGANISM Status: Acute Qualifiers: Pneumonia type: due to unspecified organism Qualified Code(s): J18.1 - Lobar pneumonia, unspecified organism (2) Acute cystitis SNOMED Code(s): 96186924 ICD Code: N30.00 - ACUTE CYSTITIS WITHOUT HEMATURIA Status: Acute Qualifiers: Hematuria presence: without hematuria Qualified Code(s): N30.00 - Acute cystitis without hematuria (3) Hypokalemia SNOMED Code(s): 45459909 ICD Code: E87.6 - HYPOKALEMIA Status: Acute (4) Acute kidney injury SNOMED Code(s): 31128039 ICD Code: N17.9 - ACUTE KIDNEY FAILURE, UNSPECIFIED Status: Acute (5) Multiple myeloma SNOMED Code(s): 646436949 ICD Code: C90.00 - MULTIPLE MYELOMA NOT HAVING ACHIEVED REMISSION Status: Chronic Qualifiers: Multiple myeloma remission status: not in remission Qualified Code(s): C90.00 - Multiple myeloma not having achieved remission - Patient Summary/Data Hospital Course: Disha presented to the emergency room with 5 days of progressive cough, shortness of breath and anorexia. Workup in the emergency room suggested right lower lobe pneumonia and also possibly a urinary tract infection. Her white blood cell count was less than 2000 and her neutrophils were less than 1000. There was not strong evidence for sepsis at the time of presentation. She was also noted to have a very low potassium at 2.6. Given her poor intake, to suspected infections as well as the hypokalemia she was admitted for further management. Because of her low white blood cell count she was started on levofloxacin and cefepime. Cultures were obtained in the emergency room. Her potassium was aggressively supplemented and we did provide some IV fluid hydration given her poor intake over the past few days. Over the first 24 hours she showed significant improvement. She had ongoing cough and some mild shortness of breath but this was improving. Energy and appetite both improved fairly quickly after admission and hydration. She has not had any fevers following admission. Over the next 24 hours she had additional improvement. She has not ever required supplemental oxygen. She has not had fevers. She has shown impressive clinical improvement and her potassium has normalized. She'll be discharged home with for additional days of antibiotic therapy. She has follow-up with the infusion Center planned for next week. - Patient Instructions Diet: Regular Diet as Tolerated Activity: As Tolerated Showering/Bathing: May Shower Notify Provider of: Fever, Increased Pain, Nausea and/or Vomiting Other/Special Instructions: 1. You were in the hospital for management of a right lower lobe pneumonia and possible urinary tract infection. The urine sample did not grow specific bacteria and I suspect your primary infection was the pneumonia. You have been improving with antibiotic therapy and I do recommend four additional doses of levofloxacin. You should take 750 mg (1 tablet) once daily for the next 4 days. Your first dose will be due tomorrow morning. 2. Continue your usual medications as previously prescribed. 3. Do not take any of your chemotherapy medications until you follow-up with the Infusion Center next week. 4. Seek medical attention if you develop fever greater than 101, you develop severe shortness of breath or if you have persistent vomiting or severe diarrhea. - Discharge Plan Prescriptions/Med Rec: Levofloxacin 750 mg PO DAILY #4 tablet Home Medications: Home Meds Acyclovir [Zovirax] 400 mg PO BID 03/12/18 [History] Albuterol [Ventolin HFA] 2 puff INH Q4H PRN 03/12/18 [History] Aspirin [Ecotrin] 325 mg PO Q6H PRN 03/12/18 [History] Biotin Powder PO DAILY 03/12/18 [History] Calcium Carbonate [Calcium] 500 mg PO DAILY 03/12/18 [History] Cholecalciferol (Vitamin D3) [Vitamin D3] 1,000 units PO DAILY 03/12/18 [History ] Gabapentin [Neurontin] 300 mg PO DAILY 03/12/18 [History] Lenalidomide [Revlimid] 15 mg PO DAILY 03/12/18 [History] Levothyroxine [Synthroid] 100 mcg PO DAILY 03/12/18 [History] Prochlorperazine [Compazine] 10 mg PO Q6H PRN 03/12/18 [History] Levofloxacin 750 mg PO DAILY #4 tablet 03/14/18 [Rx] Patient Handouts: Levofloxacin tablets, Community-Acquired Pneumonia, Adult Referrals: Jacques Lindsey MD [Primary Care Provider] - - Discharge Summary/Plan Comment DC Time >30 min.: No (25) - Patient Data Vitals - Most Recent: Last Vital Signs Temp 35.5 C 03/14/18 07:25 Pulse 63 03/14/18 07:25 Resp 16 03/14/18 07:25 BP 93/66 03/14/18 07:25 Pulse Ox 96 03/14/18 07:25 Weight - Most Recent: 78.471 kg I&O - Last 24 hours: Intake & Output 03/13/18 03/14/18 03/14/18 22:59 06:59 14:59 Intake Total 480 455 120 Output Total 200 150 200 Balance 280 305 -80 Lab Results - Last 24 hrs: Laboratory Results - last 24 hr 03/13/18 03/14/18 03/14/18 Range/Units 17:00 04:45 04:45 WBC 1.8 L (4.5-11.0) K/uL RBC 3.40 (3.30-5.50) M/uL Hgb 10.2 L (12.0-15.0) g/dL Hct 31.0 L (36.0-48.0) % MCV 91 (80-98) fL MCH 30 (27-31) pg MCHC 33 (32-36) % Plt Count 89 L (150-400) K/uL Neut % (Auto) 41 (36-66) % Lymph % (Auto) 31 (24-44) % [place] % (Auto) 15 H (2-6) % Eos % (Auto) 11 H (2-4) % Baso % (Auto) 2 H (0-1) % Sodium 145 (140-148) mmol/L Potassium 3.3 L 4.0 (3.6-5.2) mmol/L Chloride 112 H (100-108) mmol/L Carbon Dioxide 23 (21-32) mmol/L Anion Gap 14.0 (5.0-14.0) mmol/L BUN 7 (7-18) mg/dL Creatinine 0.8 (0.6-1.0) mg/dL Est Cr Clr Drug Dosing 60.17 mL/min Estimated GFR (MDRD) > 60 (>60) Glucose 108 H (74-106) mg/dL Calcium 6.8 L* (8.5-10.1) mg/dL AVA Results - Last 24 hrs: Microbiology 03/12/18 14:00 Urine Culture - Preliminary Urine, Clean Catch MIXED SULY DAY 1 03/13/18 15:31 Gram Stain - Final Sputum - Expectorated 03/12/18 13:54 Aerobic Blood Culture - Preliminary Blood - Arm, Right NO GROWTH AFTER 1 DAY Anaerobic Blood Culture - Preliminary NO GROWTH AFTER 1 DAY 03/12/18 12:40 Aerobic Blood Culture - Preliminary Blood - Arm, Right NO GROWTH AFTER 1 DAY Anaerobic Blood Culture - Preliminary NO GROWTH AFTER 1 DAY Med Orders - Current: Current Medications Acetaminophen (Tylenol) 650 mg PO Q4H PRN PRN Reason: Pain (Mild 1-3)/fever Last Admin: 03/12/18 22:36 Dose: 650 mg Acyclovir (Zovirax) 400 mg PO BID [facility] Last Admin: 03/14/18 09:25 Dose: 400 mg Albuterol (Proventil Neb Soln) 2.5 mg NEB Q4H PRN PRN Reason: Shortness Of Breath/wheezing Benzonatate (Tessalon Perles) 100 mg PO TID PRN PRN Reason: Cough Gabapentin (Neurontin) 300 mg PO DAILY [facility] Last Admin: 03/14/18 09:26 Dose: 300 mg Guaifenesin/Codeine Phosphate (Robitussin Ac) 10 ml PO Q4H PRN PRN Reason: Cough Last Admin: 03/14/18 03:23 Dose: 10 ml Cefepime HCl 1 gm/ Sodium (Chloride) 50 mls @ 100 mls/hr IV Q8H [facility] Last Admin: 03/14/18 02:26 Dose: 100 mls/hr Ibuprofen (Motrin) 600 mg PO Q6H PRN PRN Reason: Pain/Fever Levofloxacin (Levaquin) 250 mg PO Q24H [facility] Last Admin: 03/14/18 09:26 Dose: 250 mg Levofloxacin (Levaquin) 500 mg PO Q24H [facility] Last Admin: 03/14/18 09:25 Dose: 500 mg Levothyroxine Sodium (Synthroid) 100 mcg PO DAILY@0730 [facility] Last Admin: 03/14/18 06:32 Dose: 100 mcg Ondansetron HCl (Zofran Odt) 4 mg PO Q6H PRN PRN Reason: Nausea able to take PO Ondansetron HCl (Zofran) 4 mg IV Q6H PRN PRN Reason: Nausea/Vomiting Discontinued Medications Albuterol/Ipratropium (Duoneb 3.0-0.5 Mg/3 Ml) 3 ml NEB ONETIME ONE Stop: 03/12/18 13:40 Last Admin: 03/12/18 14:00 Dose: 3 ml Lactated Ringer's (Ringers, Lactated) 1,000 mls @ 500 mls[facility] Last Admin: 03/12/18 13:48 Dose: 500 mls/hr Ceftriaxone Sodium 2 gm/ (Sodium Chloride) 50 mls @ 100 mls/hr IV ONETIME ONE Stop: 03/12/18 14:29 Last Admin: 03/12/18 13:47 Dose: 100 mls/hr Potassium Chloride 20 meq/Lidocaine HCl 2 ml/ Sodium Chloride 112 mls @ 56 mls/ hr IV ONETIME ONE Stop: 03/12/18 16:29 Last Admin: 03/12/18 14:33 Dose: 56 mls/hr Potassium Chloride/Sodium Chloride (Normal Saline With 20 Meq Kcl) 1,000 mls @ 125 mls/hr [facility] Last Admin: 03/13/18 02:52 Dose: 125 mls/hr Levofloxacin/Dextrose 750 mg/ (Premix) 150 mls @ 100 mls/hr IV ONETIME ONE Stop: 03/12/18 18:29 Last Admin: 03/12/18 17:43 Dose: 100 mls/hr Magnesium Sulfate 2 gm/ Premix 50 mls @ 25 mls/hr IV ONETIME ONE Stop: 03/12/18 19:59 Last Admin: 03/12/18 21:06 Dose: 25 mls/hr Potassium Chloride (Klor-Con M20) 40 meq PO ONETIME ONE Stop: 03/12/18 14:01 Last Admin: 03/12/18 14:07 Dose: 40 meq Potassium Chloride (Klor-Con M20) 40 meq PO ONETIME ONE Stop: 03/13/18 10:01 Last Admin: 03/13/18 10:32 Dose: 40 meq Potassium Chloride (Klor-Con M20) 40 meq PO ONETIME ONE Stop: 03/13/18 17:33 Last Admin: 03/13/18 18:20 Dose: 40 meq - Exam Quality Assessment: Denies: Supplemental Oxygen General: Reports: Alert, Oriented, Cooperative, No Acute Distress Neck: Reports: Supple Lungs: Reports: Normal Respiratory Effort GI/Abdominal Exam: No Distention Extremities: No Pedal Edema Psy/Mental Status: Reports: Alert, Normal Affect
== END 2018-03-14 11:00 | disposition home or self-care (01) | DRG 194 ==
LOC: JP.ED 11:46 → UNDOADMIN 15:42 → JP.MS 15:42
PROVIDERS: ADMIT Internal Medicine; ATTEND Internal Medicine
DX: J18.9 Pneumonia, unspecified organism (principal); J18.1 Lobar pneumonia, unspecified organism; N30.00 Acute cystitis without hematuria; C90.00 Multiple myeloma not having achieved remission; E89.0 Postprocedural hypothyroidism; E87.6 Hypokalemia; K57.90 Diverticulosis of intestine, part unspecified, without perforation or abscess without bleeding; G62.9 Polyneuropathy, unspecified; Y84.2 Radiological procedure and radiotherapy as the cause of abnormal reaction of the patient, or of later complication, without mention of misadventure at the time of the procedure; T45.1X5A Adverse effect of antineoplastic and immunosuppressive drugs, initial encounter; Z98.891 History of uterine scar from previous surgery; Z88.1 Allergy status to other antibiotic agents; Z79.82 Long term (current) use of aspirin; R50.9 Fever, unspecified; R53.1 Weakness; R09.3 Abnormal sputum; R06.00 Dyspnea, unspecified; R06.02 Shortness of breath; R05 Cough; R11.2 Nausea with vomiting, unspecified; Z90.49 Acquired absence of other specified parts of digestive tract; Z79.899 Other long term (current) drug therapy
CPT/HCPCS: 36415; 71046 ×2; 80053; 81001; 83605; 83735; 85025; 86140; 87040 ×2; 87086; 96361; 96365; 99285; A9270; J0696; J3480; J7030; J7050; J7120; J7620; 80048; 84132; 87070; 87205; 96375; J0692; J1956; J3475

== ENCOUNTER 2023-07-04 01:33 | Emergency (ER) | payer MEDICARE, BC ==
[2023-07-04] MEDS ORDERED: HYDROmorphone 0.5 MG/0.5 ML Syringe IVPUSH ONE ×4 (03:09→14:23)
[2023-07-04] MEDS ORDERED: Naloxone 0.4 MG/ML SDV IVPUSH PRN (03:09)
[2023-07-04 03:55] LABS: BASOPHILS ABSOLUTE AUTO 0.03 K/uL (0.00-0.10); EOSINOPHILS PERCENT AUTO 3.3 % (0.0-5.4); HEMATOCRIT 34.8 % (34.3-46.0); HEMOGLOBIN 11.6 g/dL (11.2-15.5); IMMATURE GRAN ABSOLUTE AUTO 0.01 K/uL (0.00-0.23); IMMATURE GRAN PERCENT AUTO 0.3 % (0.0-0.7); LYMPHOCYTES ABSOLUTE AUTO 0.77 K/uL (0.8-3.3); LYMPHOCYTES PERCENT AUTO 25.2 % (11.4-47.7); MEAN CORPUSCULAR HEMOGLOBIN 31.4 pg (31.6-35.5); MEAN CORPUSCULAR HGB CONC 33.3 g/dL (31.6-35.5); MEAN CORPUSCULAR VOLUME 94.1 fL (81.4-99.0); MONOCYTES ABSOLUTE AUTO 0.32 K/uL (0.20-0.90); MONOCYTES PERCENT AUTO 10.5 % (3.3-12.6); NEUTROPHILS ABSOLUTE AUTO 1.82 K/uL (1.0-7.6); NEUTROPHILS PERCENT AUTO 59.7 % (40.0-78.1); PLATELET COUNT,PLT 88 K/uL (130-375); WHITE BLOOD CELL COUNT,WBC 3.1 K/uL (3.2-11.0)
[2023-07-04 04:16] LABS: A/G RATIO 0.9 (1.2-2.2); ALANINE AMINOTRANSFERASE,ALT 19 U/L (12-78); ALBUMIN 3.1 g/dL (3.4-5.0); ALKALINE PHOSPHATASE 99 U/L (46-116); ASPARTATE AMNIOTRANSFERASE,AST 19 U/L (15-37); BILIRUBIN TOTAL 0.7 mg/dL (0.2-1.0); BLOOD UREA NITROGEN,BUN 12 mg/dL (7-18); CALCIUM 8.1 mg/dL (8.5-10.1); CARBON DIOXIDE,CO2 27 mmol/L (21-32); CHLORIDE,CL 104 mmol/L (100-108); CREATININE 0.8 mg/dL (0.6-1.0); EST CRCL DRUG DOSING (CG) 54.89 mL/min; ESTIMATED GFR 78 mL/min (>60); GLUCOSE RANDOM 120 mg/dL (74-106); POTASSIUM,K 3.2 mmol/L (3.6-5.2); PROTEIN TOTAL,TP 6.6 g/dL (6.4-8.2); SODIUM,NA 140 mmol/L (140-148)
[2023-07-04 04:17] LABS: ANION GAP 12.2 mmol/L (5.0-14.0)
[2023-07-04] MEDS ORDERED: Sodium Chloride 0.9% 1,000 ML IV SCH (07:00)
[2023-07-04] MEDS ORDERED: Prochlorperazine 10 MG Tab PO PRN (07:17)
[2023-07-04] MEDS ORDERED: Levothyroxine 25 MCG Tab PO SCH (07:30)
[2023-07-04] MEDS ORDERED: Levothyroxine 100 MCG Tab PO SCH (09:00)
[2023-07-04] MEDS ORDERED: Gabapentin 300 MG Cap PO SCH ×2 (09:00→21:00)
[2023-07-04] MEDS ORDERED: LENALIDOMIDE 15 MG PO SCH (09:00)
== END 2023-07-04 15:19 ==
LOC: JP.ED 01:33
DX: S72.001A Fracture of unspecified part of neck of right femur, initial encounter for closed fracture (principal); E87.6 Hypokalemia; C90.00 Multiple myeloma not having achieved remission; E03.9 Hypothyroidism, unspecified; Z88.8 Allergy status to other drugs, medicaments and biological substances; Z88.1 Allergy status to other antibiotic agents; Z91.048 Other nonmedicinal substance allergy status; Z79.82 Long term (current) use of aspirin; Z79.899 Other long term (current) drug therapy; X58.XXXA Exposure to other specified factors, initial encounter; Y93.01 Activity, walking, marching and hiking
CPT/HCPCS: 36415; 51702; 73502; 73552; 73700; 76377; 80053; 85025; 96374; 96376; 99284; A9270; J1170; J7030; 99285

== ENCOUNTER 2025-05-20 16:50 | Emergency (ER) | payer MEDICARE, BC ==
[2025-05-20 18:28] LABS: BASOPHILS PERCENT AUTO 0.0 % (0.1-1.3); EOSINOPHILS PERCENT AUTO 0.1 % (0.0-5.4); IMMATURE GRAN ABSOLUTE AUTO 0.06 K/uL (0.00-0.23); IMMATURE GRAN PERCENT AUTO 0.9 % (0.0-0.7); LYMPHOCYTES ABSOLUTE AUTO 0.47 K/uL (0.8-3.3); LYMPHOCYTES PERCENT AUTO 7.0 % (11.4-47.7); MONOCYTES ABSOLUTE AUTO 0.44 K/uL (0.20-0.90); MONOCYTES PERCENT AUTO 6.5 % (3.3-12.6); NEUTROPHILS ABSOLUTE AUTO 5.78 K/uL (1.0-7.6); NEUTROPHILS PERCENT AUTO 85.5 % (40.0-78.1); PLATELET COUNT,PLT 80 K/uL (130-375); RED BLOOD CELL COUNT 2.36 M/uL (3.77-5.24); WHITE BLOOD CELL COUNT,WBC 6.8 K/uL (3.2-11.0)
[2025-05-20 18:31] LABS: BASOPHILS ABSOLUTE AUTO 0.00 K/uL (0.00-0.10); EOSINOPHILS ABSOLUTE AUTO 0.01 K/uL (0.00-0.40)
[2025-05-20 18:50] LABS: A/G RATIO 0.5 (1.2-2.2); ALANINE AMINOTRANSFERASE,ALT 13 U/L (12-78); ASPARTATE AMNIOTRANSFERASE,AST 13 U/L (15-37); BILIRUBIN TOTAL 0.3 mg/dL (0.2-1.0); BLOOD UREA NITROGEN,BUN 12 mg/dL (7-18); CARBON DIOXIDE,CO2 24 mmol/L (21-32); CHLORIDE,CL 107 mmol/L (100-108); CREATININE 1.3 mg/dL (0.6-1.0); EST CRCL DRUG DOSING (CG) 33.28 mL/min; ESTIMATED GFR 43 mL/min (>60); GLUCOSE RANDOM 95 mg/dL (74-106); POTASSIUM,K 3.3 mmol/L (3.6-5.2); PROTEIN TOTAL,TP 6.8 g/dL (6.4-8.2); SODIUM,NA 139 mmol/L (140-148)
[2025-05-20 18:54] LABS: LACTIC ACID 0.9 mmol/L (0.4-2.0)
[2025-05-20 19:36] LABS: APPEARANCE,URINE TURBID (CLEAR); GLUCOSE,URINE NEGATIVE (NEGATIVE); OCCULT BLOOD,URINE SMALL (NEGATIVE)
[2025-05-20 19:53] LABS: SQUAMOUS EPITHELIAL CELLS,UR RARE /HPF; UROTHELIAL CELLS,URINE RARE /HPF
== END 2025-05-20 20:38 | disposition home or self-care (01) ==
LOC: JP.ED 16:50
DX: N39.0 Urinary tract infection, site not specified (principal); Z91.048 Other nonmedicinal substance allergy status; Z88.6 Allergy status to analgesic agent; Z88.8 Allergy status to other drugs, medicaments and biological substances; Z79.82 Long term (current) use of aspirin; Z79.899 Other long term (current) drug therapy; Z79.890 Hormone replacement therapy; Z87.891 Personal history of nicotine dependence
CPT/HCPCS: 36415; 80053; 81001; 83605; 85025; 86140; 99283